=== PATIENT | male | born 1995 | race Caucasian/White ===

== ENCOUNTER → 2020-06-23 11:29 | Outpatient (CLI) | payer BC, SELFPAY ==
--- NOTE | ~2020-06-23 | MR_ITS ---
EXAMINATION: MR lumbar spine wo [facility] EXAM DATE: 06/23/2020 12:03 INDICATION: Low back pain with bilateral lower extremity radiculopathy. TECHNIQUE: Multi-sequential, multiplanar MR images of the lumbar spine were obtained without contrast . Sagittal T1, T2, T2 fat saturation images. Axial T2 weighted images. There is no prior study for comparison. FINDINGS: There is mild to moderate disc disease at L2-3 and L5-S1. There is 2 mm retrolisthesis L5 o n S1. The conus medullaris terminates at the T12-L1 level and has normal signal intensity and morphol ogy. There are no suspicious marrow signal abnormalities. Paraspinal soft tissue is unremarkable. Level by level evaluation: T12-L1: Disc does not extend beyond the endplate margin. Facet arthropathy: None. Neural foraminal stenosis: No stenosis. Central canal stenosis: No stenosis. L1-L2: Disc does not extend beyond the endplate margin. Facet arthropathy: None. Neural foraminal stenosis: No stenosis. Central canal stenosis: No stenosis. L2-L3: There is a mild diffuse disc bulge. Facet arthropathy: Mild bilateral. Neural foraminal stenosis: No stenosis. Central canal stenosis: No stenosis. L3-L4: There is a mild diffuse disc bulge. Facet arthropathy: Mild bilateral. Neural foraminal stenosis: Mild bilateral. Central canal stenosis: No stenosis. L4-L5: There is a mild diffuse disc bulge. Facet arthropathy: Mild bilateral. Neural foraminal stenosis: Mild bilateral. Central canal stenosis: No stenosis. L5-S1: There is a mild diffuse disc bulge, superimposed central protrusion, annular fissure. Facet arthropathy: Mild. Neural foraminal stenosis: No stenosis. Central canal stenosis: Mild. IMPRESSION: Up to mild to moderate lumbar spondylosis. Reviewed, dictated and finalized at location G. PRESSER
== END ==
PROVIDERS: PCP Family Medicine Adolescent Medicine; Visit Provider Physician Assistant
DX: M47.896 Other spondylosis, lumbar region (principal)
CPT/HCPCS: 72148